=== PATIENT | male | born 1935 | race Two or more races ===

== ENCOUNTER 2017-05-27 06:52 | Emergency (ER) | payer OTHER ==
[~2017-05-27] VITALS: Ht 177.8 cm; Wt 74.8 kg
[2017-05-27] MEDS ORDERED: ENALAPRIL MALE2.5 MG (07:11)
[2017-05-27] MEDS ORDERED: DORZOLAMIDE-TIM10 ML (07:14)
[2017-05-27] MEDS ORDERED: LATANOPROST2.5 ML (07:14)
== END 2017-05-27 15:41 | disposition home or self-care (01) ==
LOC: ER 06:52 → CPU-OBS 07:10 → ER 15:41
DX: R07.89 Other chest pain (principal)

== ENCOUNTER 2017-06-15 07:56 | Outpatient (CLI) | payer OTHER ==
[~2017-06-15 07:56] MED LIST: DORZOLAMIDE-TIM10 ML; ENALAPRIL MALE2.5 MG; LATANOPROST2.5 ML
== END 2017-06-15 08:00 | disposition home or self-care (01) ==
LOC: NUCLEAR 07:56
DX: R07.89 Other chest pain (principal); R94.31 Abnormal electrocardiogram [ECG] [EKG]
CPT/HCPCS: 78452; 93017; A9500; J0153